=== PATIENT | female | born 1965 | race Hispanic/Latino ===

== ENCOUNTER → 2016-05-14 | Outpatient (CLI) | payer OTHER ==
[~2016-05-14] MED LIST: BENT20TA PO; CHLO125TA PO; COLA100C PO; LEVO125T3 PO; LISI10TA4 PO; LORT5TAB PO; NEXI20CA PO
== END ==
LOC: M RAD 10:50
PROVIDERS: ATTEND Physician Assistant
DX: Z12.31 Encounter for screening mammogram for malignant neoplasm of breast (principal); Z53.9 Procedure and treatment not carried out, unspecified reason

== ENCOUNTER → 2016-05-28 | Outpatient (CLI) | payer OTHER ==
--- NOTE | 2016-05-28 14:15 | REP ---
DIGITAL DIAGNOSTIC BILATERAL MAMMOGRAPHY WITH CAD AND FOCUSED LEFT BREAST SONOGRAPHY: HISTORY: Left breast lump times 6 months in the axillary region. Most recently painful. Comparison mammography March 06, 2014, July 18, 2010, September 26, 2008. FINDINGS: Scattered fibroglandular elements are seen mammographically on both sides. No suspicious mammographic abnormality is seen. Skin marker is affixed to the skin at the site of the palpable lump. This projects in the left axilla on MLO projection image near a benign appearing stable lymph node in the axillary soft tissues. This lymph node measures 1.8 cm. There are other similar lymph nodes in both axilla which are also stable. No neodensity, architectural distortion or microcalcification is seen mammographically. FOCUSED LEFT BREAST SONOGRAPHIC FINDINGS: Left breast is scanned over the area of palpable lump. Multiple axillary lymph nodes are seen. These have preserved echogenic hilar architecture. The three largest lymph nodes are measured as follows: 1.3 x 0.7 x 1.3 cm, 1.2 x 0.9 x 1.3 cm, and 1.8 x 0.7 x 1.3 cm. These do not appear pathologic by ultrasound criteria. IMPRESSION: BIRADS category 2 benign stable breast imaging findings. Stable appearing lymph nodes in the axillary regions seen in the region of the lump. No other mass or cyst is seen either mammographically or sonographically. Clinical follow-up is advised. This negative report should not dissuade one from biopsy of a palpable lump depending on its clinical characteristics. BIRADS/ACR category 2 mammogram. Benign finding(s). Routine annual screening mammography (for women over age 40). This mammogram was interpreted with the aid of an FDA-approved computer-aided detection system. The patient states that she/he has not had a clinical breast exam in over a year. . The patient letter being requested is M2. Signed by Arian Lemons MD 05/28/2016 08:12 P
== END ==
LOC: M RAD 11:03
PROVIDERS: ATTEND Physician Assistant
DX: N63 Unspecified lump in breast (principal)

== ENCOUNTER → 2018-02-19 | Outpatient (REF) | payer OTHER | LOC: M SFHCLERA 18:36 | DX: J20.9 Acute bronchitis, unspecified (principal) ==

== ENCOUNTER → 2019-01-11 | Outpatient (CLI) | payer OTHER ==
[~2019-01-11] MED LIST changes: -COLA100C PO; +COLA100C5 PO; -LEVO125T3 PO; +LEVO125T4 PO
--- NOTE | 2019-01-11 11:06 | REPMRS ---
Patient History The patient states she has not had a clinical breast exam in over a year. Patient has history of thyroid cancer at age 47. Family history of breast cancer at age 38 in maternal aunt, lung and throat cancer in father, lung cancer in paternal grandfather. Taking unspecified hormones for 7 years. The Sumi Rao lifetime risk for breast cancer is 14.1%. Digital Mammo Screening Bilat: January 11, 2019 - Exam #: [id number] Bilateral CC and MLO view(s) were taken. Technologist: Jaja Miller, Technologist Prior study comparison: May 28, 2016, digital mammo diagnostic bilateral performed at [facility]. FINDINGS: There are scattered fibroglandular densities. There has been no change in the appearance of the mammogram from the prior studies. There is a mild amount of residual fibroglandular tissue which is fairly symmetric. There is no interval development of dominant mass, architectural distortion, or clustered microcalcification suggestive of malignancy. Assessment: BI-RADS/ACR category 1 mammogram. Negative Mammogram. Recommendation Routine screening mammogram in 1 year (for women over age 40). This mammogram was interpreted with the aid of an FDA-approved computer-aided dectection system. Electronically Signed By: Jarad So MD 01/11/19 [id number]
== END ==
LOC: M RAD 09:58
PROVIDERS: ATTEND Student in an Organized Health Care Education/Training Program
DX: Z12.31 Encounter for screening mammogram for malignant neoplasm of breast (principal)

== ENCOUNTER → 2019-08-03 | Outpatient (REF) | LOC: M LAB REF 16:19 | DX: J98.9 Respiratory disorder, unspecified (principal) ==

== ENCOUNTER → 2022-05-15 | Outpatient (CLI) | payer OTHER, SELFPAY ==
[~2022-05-15] MED LIST changes: +LISI10TA22 PO; -LISI10TA4 PO
== END ==
LOC: M WHC 15:51
PROVIDERS: ATTEND Student in an Organized Health Care Education/Training Program
DX: Z12.31 Encounter for screening mammogram for malignant neoplasm of breast (principal)